=== PATIENT | female | born 1940 | race Caucasian/White ===

== ENCOUNTER 2019-01-03 06:19 | Day surgery (SDC) | payer MEDICARE ==
[~2019-01-03] VITALS: Ht 157.5 cm; Wt 81.8 kg
[~2019-01-03 06:19] MED LIST: ALBU90OI INH; ALEN70; ASCO1ER; GABA300 PO; GLIP10; HYDACE5 PO; HYDGUAL120 PO; IRBE75; METF500 PO; METTREX2.5; MICROZIDE12.5 M1 PO; MULVITB PO; NAPR220 PO; ROFE12.5; ROSI4; RXHYDGUAS PO
--- NOTE | 2019-01-03 06:57 | NUR ---
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
--- NOTE | 2019-01-03 08:42 | NUR ---
01/03/19 0842 Rosaroi Duran WHILE GOING OVER DISCHARGE INSTRUCTIONS, PT. VERBALIZED HER STOMACH FELT KIND OF QUEEZY. PT. VERBALIZES SHE DOES THIS SOMETIMES. PT. STATES " I DO THIS SOMETIMES, I'LL BE FINE."
== END 2019-01-03 08:35 | disposition home or self-care (01) ==
LOC: ORSCSDS 06:19
PROVIDERS: Ophthalmology
PROC: 08RJ3JZ Replacement of Right Lens with Synthetic Substitute, Percutaneous Approach (ICD-10-PCS; principal; 2019-01-03 07:30)
DX: H25.11 Age-related nuclear cataract, right eye (principal); I10 Essential (primary) hypertension; I25.2 Old myocardial infarction; J45.909 Unspecified asthma, uncomplicated; E03.9 Hypothyroidism, unspecified; E11.40 Type 2 diabetes mellitus with diabetic neuropathy, unspecified; Z79.84 Long term (current) use of oral hypoglycemic drugs; Z79.899 Other long term (current) drug therapy
CPT/HCPCS: 82947; J2250; J3010; J7120; V2632

== ENCOUNTER → 2020-02-27 | Outpatient (CLI) | payer MEDICARE | END | disposition home or self-care (01) | LOC: LAB 17:35 | DX: L65.9 Nonscarring hair loss, unspecified (principal) | CPT/HCPCS: 84443 ==

== ENCOUNTER → 2020-12-25 | Outpatient (CLI) | payer MEDICARE | LOC: LAB 14:47 → LAB SHORT 14:47 | DX: D48.5 Neoplasm of uncertain behavior of skin (principal); D18.01 Hemangioma of skin and subcutaneous tissue; Z88.2 Allergy status to sulfonamides | CPT/HCPCS: 88305 ==

== ENCOUNTER → 2022-02-02 | Outpatient (CLI) | payer MEDICARE ==
[2022-02-04 10:52] LABS: Adenovirus F 40/41 Not Detected (NOT DETECT); Astrovirus Not Detected (NOT DETECT); Campylobacter Sp Not Detected (NOT DETECT); Cryptosporidium Not Detected (NOT DETECT); Cyclospora Cayetanensis Not Detected (NOT DETECT); E. Coli O157 Not Detected (NOT DETECT); Entamoeba Histolytica Not Detected (NOT DETECT); Enteroaggregative E. coli-EAEC Not Detected (NOT DETECT); Enteropathogenic E. coli-EPEC Not Detected (NOT DETECT); Enterotoxigenic E. coli-ETEC Not Detected (NOT DETECT); Giardia Lamblia Not Detected (NOT DETECT); Norovirus GI/GII Not Detected (NOT DETECT); Plesiomonas Shigelloides Not Detected (NOT DETECT); Rotavirus A Not Detected (NOT DETECT); Salmonella Sp Not Detected (NOT DETECT); Sapovirus Not Detected (NOT DETECT); Shiga Toxin-prod E. coli-STEC Not Detected (NOT DETECT); Shigella/Enteroin E. coli-EIEC Not Detected (NOT DETECT); Vibrio Cholerae Not Detected (NOT DETECT); Vibrio Sp Not Detected (NOT DETECT); Yersinia Enterocolitica Not Detected (NOT DETECT)
== END | disposition home or self-care (01) ==
LOC: LAB SHORT 15:55
PROVIDERS: Hospitalist
DX: R19.7 Diarrhea, unspecified (principal)
CPT/HCPCS: 87507

== ENCOUNTER → 2023-01-20 | Outpatient (CLI) | payer MEDICARE ==
[2023-01-20 15:49] LABS: BASOPHILS ABSOLUTE AUTO 0.09 K/mm3 (0.00-0.23); BASOPHILS PERCENT AUTO 1 % (0-2); EOSINOPHILS PERCENT AUTO 1 % (0-6); Hematocrit 35.9 % (33.0-51.0); Hemoglobin 11.7 g/dL (11.5-16.0); IMMATURE GRAN ABSOLUTE AUTO 0.03 K/mm3 (0.00-0.10); IMMATURE GRAN PERCENT AUTO 0 % (0-1); LYMPHOCYTES ABSOLUTE AUTO 1.01 K/mm3 (0.84-5.20); LYMPHOCYTES PERCENT AUTO 14 % (21-46); MONOCYTES ABSOLUTE AUTO 0.55 K/mm3 (0.16-1.47); MONOCYTES PERCENT AUTO 8 % (4-13); Mean Corpuscular HGB 32.2 pg (26.0-34.0); Mean Corpuscular HGB Conc 32.6 g/dL (31.5-36.5); Mean Corpuscular Volume 99 fL (80-100); Mean Platelet Volume 11.1 fL (9.1-12.4); NEUTROPHILS ABSOLUTE AUTO 5.58 K/mm3 (1.96-9.15); NEUTROPHILS PERCENT AUTO 76 % (41-73); Platelet Count 246 K/mm3 (150-400); RDW Coefficient Variation 13.1 % (11.7-14.2); RDW Standard Deviation 47.6 fL (35.1-46.3); Red Blood Cell Count 3.63 M/mm3 (3.80-5.20); White Blood Cell Count 7.36 K/mm3 (4.00-11.30)
[2023-01-20 16:11] LABS: Bun/Creatinine Ratio 17.9 (12.0-20.0); Calcium, Blood 9.1 mg/dL (8.5-10.1); Creatinine, Blood 0.61 mg/dL (0.40-1.00); Potassium, Blood 3.9 mmol/L (3.5-5.5)
== END | disposition home or self-care (01) ==
LOC: LAB SHORT 13:34 → LAB 13:34
PROVIDERS: Hospitalist
DX: R19.7 Diarrhea, unspecified (principal)
CPT/HCPCS: 80048; 85025

== ENCOUNTER 2023-03-01 10:54 | Emergency (ER) | payer MEDICARE ==
[~2023-03-01] VITALS: Ht 160 cm; Wt 72.6 kg
[~2023-03-01 10:54] MED LIST changes: +GABA100 PO; -GABA300 PO
[2023-03-01 11:12] VITALS: BP 110/62
[2023-03-01] MEDS ORDERED: Robaxin750 MG PO (13:11)
[2023-03-01] MEDS ORDERED: IBUP400 PO (13:11)
[2023-03-01] MEDS ORDERED: ACET500 PO (13:11)
== END 2023-03-01 14:01 | disposition home or self-care (01) ==
LOC: ER 10:54
DX: S39.012A Strain of muscle, fascia and tendon of lower back, initial encounter (principal); M25.552 Pain in left hip; E11.9 Type 2 diabetes mellitus without complications; I10 Essential (primary) hypertension; W07.XXXA Fall from chair, initial encounter; Z88.2 Allergy status to sulfonamides; Z79.84 Long term (current) use of oral hypoglycemic drugs; Z79.899 Other long term (current) drug therapy
CPT/HCPCS: 73502; 96372; 99283-25; A9270; J1885

== ENCOUNTER 2023-03-02 01:35 | Inpatient (IN) | payer MEDICARE ==
[~2023-03-02] VITALS: Ht 157.5 cm; Wt 77.2 kg
[~2023-03-02 01:35] MED LIST changes: +ACET500 PO; +IBUP400 PO; +Robaxin750 MG PO
[2023-03-02 02:55] LABS: BASOPHILS ABSOLUTE AUTO 0.02 K/mm3 (0.00-0.23); BASOPHILS PERCENT AUTO 0 % (0-2); EOSINOPHILS PERCENT AUTO 0 % (0-6); Hematocrit 38.9 % (33.0-51.0); Hemoglobin 12.4 g/dL (11.5-16.0); IMMATURE GRAN ABSOLUTE AUTO 0.11 K/mm3 (0.00-0.10); IMMATURE GRAN PERCENT AUTO 1 % (0-1); LYMPHOCYTES ABSOLUTE AUTO 0.38 K/mm3 (0.84-5.20); LYMPHOCYTES PERCENT AUTO 2 % (21-46); MONOCYTES ABSOLUTE AUTO 0.58 K/mm3 (0.16-1.47); MONOCYTES PERCENT AUTO 4 % (4-13); Mean Corpuscular HGB 30.6 pg (26.0-34.0); Mean Corpuscular HGB Conc 31.9 g/dL (31.5-36.5); Mean Corpuscular Volume 96 fL (80-100); Mean Platelet Volume 10.2 fL (9.1-12.4); NEUTROPHILS ABSOLUTE AUTO 14.79 K/mm3 (1.96-9.15); NEUTROPHILS PERCENT AUTO 93 % (41-73); Platelet Count 409 K/mm3 (150-400); RDW Standard Deviation 42.7 fL (35.1-46.3); Red Blood Cell Count 4.05 M/mm3 (3.80-5.20); White Blood Cell Count 15.88 K/mm3 (4.00-11.30)
[2023-03-02 03:10] LABS: International Normalized Ratio 1.03; Prothrombin Time Results 10.8 Sec (9.7-11.5)
[2023-03-02 03:16] LABS: Albumin, Blood 2.9 g/dL (3.4-5.0); Albumin/Globulin Ratio 0.7 (0.8-1.8); Bilirubin, Total 0.6 mg/dL (0.1-1.0); Bun/Creatinine Ratio 31.8 (12.0-20.0); Calcium, Blood 9.2 mg/dL (8.5-10.1); Creatinine, Blood 0.66 mg/dL (0.40-1.00); Globulin, Blood 4.4 g/dL (2.2-4.0); Magnesium, Blood 2.3 mg/dL (1.6-2.4); Phosphorus, Blood 3.7 mg/dL (2.5-4.9); Thyroid Stimulating Hormone 1.42 uIU/mL (0.360-4.800); Total Protein, Blood 7.3 g/dL (6.4-8.2)
[2023-03-02 05:10] LABS: Influenza A, PCR NEGATIVE (NEGATIVE); Influenza B, PCR NEGATIVE (NEGATIVE); Resp Syncytial Virus, PCR NEGATIVE (NEGATIVE); SARS-Cov-2 (COVID-19) PCR, MMC NEGATIVE (NEGATIVE)
[2023-03-02 08:13] LABS: Source, Urine Clean Catch
[2023-03-02 08:18] LABS: Bilirubin, Urine Neg (Neg); Blood, Urine 2+ (Neg); Glucose Qualitative, Urine Neg (Neg); Ketones, Urine 4+ (Neg); Leukocyte Esterase, Urine Neg (Neg); Nitrite, Urine Neg (Neg); Protein, Urine 2+ (Neg); Specific Gravity, Urine 1.015 (1.003-1.022); Urobilinogen, Urine NORM (Normal); pH, Urine 6.5 (5.0-8.0)
[2023-03-02 08:56] LABS: Appearance, Urine Hazy (Clear); Bacteria Not Seen /hpf; Color, Urine Yellow (P-Yellow); Red Blood Cells, Urine 0-2 /hpf (0-2); Squamous Epithelial Cells Rare /hpf (Few); White Blood Cells, Urine Not Seen /hpf (0-5)
--- NOTE | 2023-03-02 10:09 | NUR ---
PT ADMITTED TO ROOM 301, STRETCHER TO BED SLIDE TX. PT A/O X4, ORIENTED TO ROOM AND CALL LIGHT AND SAFETY. KNOWS LIMITS. NG HOOKED UP TO LIWS. PT FEELING SEVERE NAUSEA, CALL TO DR KHOURY FOR MORE ANTIEMETIC. PLAN TO GO DOWN FOR US GUIDED THOROCENTESIS. PT CURRENTLY DENIES PAIN.
[2023-03-02 11:50] LABS: Automated BF RBC Count 0.003 M/mm3 (0-0); Automated BF WBC Count 1.082 K/mm3 (0-999)
[2023-03-02 11:53] LABS: Body Fluid WBC Count 1082 /mm3 (0-999); RBC Count, Body Fluid 3000 /mm3 (0-0)
[2023-03-02 12:03] LABS: Glucose, Body Fluid 196 mg/dL
[2023-03-02 12:15] LABS: Lactate Dehydrogenase, Body Fl 153 U/L
[2023-03-02 12:23] LABS: Albumin, Body Fluid 2.5 g/dL
[2023-03-02 12:24] LABS: Protein, Body Fluid 4.7 g/dL
[2023-03-02 12:31] LABS: Total Cell Count, Body Fluid 100
[2023-03-02 12:32] LABS: Appearance, Body Fluid Hazy (Clear); Color, Body Fluid L Yellow (None-Yellow)
[2023-03-02 15:57] VITALS: BP 101/53
--- NOTE | 2023-03-02 16:27 | NUR ---
Upon receiving a referral for spiritual care, I visited the patient. Patient is pleasant and kind even while clearly being in discomfort. She talks about the of her 4 yrs ago, about the wonderful support of her family and her 45 acre ranch out near [place]. 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 She states that she is at peace and "hangin int there" becuase there is no better way to be. I reinforce helpful attitudes, and provide therapeutic listening and a calming presence. Patient responded well and showed signs of an elevated mood. I will continue to remain available ot patient and family.
--- NOTE | 2023-03-02 18:37 | NUR ---
SUMMARY- PT A/O X3-4, GEN WEAKNESS, BEDREST FOR NOW. PT HAD PARACENTESIS TODAY WITH FLUID SENT FOR CYTOLOGY. NG TO LIWS 75 OUT 12 HOUR SHIFT (AFTER INITIAL 2L OUT IN ED WHEN FIRST PLACED). IVF INFUSING LR 75ML/HR. PLACED OXYGEN 2L FOR SATS 90% ROOM AIR, DIM IN BASES. ENC DEEP BREATH. USING PUREFICK RELATED TO INCONT. DAUGHTER IN TO VISIT A FEW HOURS TODAY, WILL RETURN TOMORROW. PT REMAINS NPO, DISTENDED ABD, DENIES PAIN. HAD NAUSEA EARLIER SHIFT, RELEIVED WITH ZOFRAN AND COMPAZINE. WILL REPORT TO NOC RN
--- NOTE | 2023-03-02 18:46 | NUR ---
SUMMARY- PT A/O X4, BEDREST TODAY. HAS GEN WEAKNESS AND DECREASED APPETITE. IVF INFUSING LR @75. VOIDING, URINE DARK CONCENTRATED DOLLY. MIN PO INTAKE. PT LUNGS COARSE, COUGHING, STATES MIN PRODUCTION. RESP UNLABORED STARGED GUIAFENNISEN TODAY. MULT FAMILY IN TODAY,. WILL REPORT TO NIGHTS
[2023-03-02 19:15] VITALS: BP 118/58
[2023-03-03 03:06] VITALS: BP 142/57
[2023-03-03 05:16] LABS: BASOPHILS ABSOLUTE AUTO 0.01 K/mm3 (0.00-0.23); BASOPHILS PERCENT AUTO 0 % (0-2); EOSINOPHILS ABSOLUTE AUTO 0.02 K/mm3 (0.00-0.68); EOSINOPHILS PERCENT AUTO 0 % (0-6); Hematocrit 32.5 % (33.0-51.0); Hemoglobin 10.5 g/dL (11.5-16.0); IMMATURE GRAN ABSOLUTE AUTO 0.06 K/mm3 (0.00-0.10); IMMATURE GRAN PERCENT AUTO 0 % (0-1); LYMPHOCYTES ABSOLUTE AUTO 0.74 K/mm3 (0.84-5.20); LYMPHOCYTES PERCENT AUTO 5 % (21-46); MONOCYTES ABSOLUTE AUTO 1.03 K/mm3 (0.16-1.47); MONOCYTES PERCENT AUTO 7 % (4-13); Mean Corpuscular HGB 31.1 pg (26.0-34.0); Mean Corpuscular HGB Conc 32.3 g/dL (31.5-36.5); Mean Corpuscular Volume 96 fL (80-100); Mean Platelet Volume 10.4 fL (9.1-12.4); NEUTROPHILS ABSOLUTE AUTO 12.89 K/mm3 (1.96-9.15); NEUTROPHILS PERCENT AUTO 87 % (41-73); Platelet Count 326 K/mm3 (150-400); RDW Coefficient Variation 12.3 % (11.7-14.2); Red Blood Cell Count 3.38 M/mm3 (3.80-5.20); White Blood Cell Count 14.75 K/mm3 (4.00-11.30)
[2023-03-03 05:39] LABS: Albumin, Blood 2.1 g/dL (3.4-5.0); Albumin/Globulin Ratio 0.6 (0.8-1.8); Bilirubin, Total 0.5 mg/dL (0.1-1.0); Bun/Creatinine Ratio 46.4 (12.0-20.0); Calcium, Blood 8.7 mg/dL (8.5-10.1); Creatinine, Blood 0.6 mg/dL (0.40-1.00); Globulin, Blood 3.5 g/dL (2.2-4.0); Magnesium, Blood 2.1 mg/dL (1.6-2.4); Potassium, Blood 3.9 mmol/L (3.5-5.5); Total Protein, Blood 5.6 g/dL (6.4-8.2)
--- NOTE | 2023-03-03 05:44 | NUR ---
REPORT RECEIVED VERIFIED PT VERY PLEASENT AND COOPERATIVE EVEN SHE IS VERY UNCOMFORTABLE WITH NGT AND BLOATING. RIGHT NARE NGT INTER SUCTION IS DRAINGING WELL DARK GREEN BILE. PURWIC ALSO FUNTIONAL, ICE CHIPS AND SWAB GIVEN TO PT FOR COMFORT. WILL CONT TO MONITOR, PT ABLE TO MAKE NEEDS KNOWN.
[2023-03-03 07:56] VITALS: BP 126/54
[2023-03-03 15:44] VITALS: BP 131/60
--- NOTE | 2023-03-03 16:36 | NUR ---
Pt resting in bed upon arrival. Pt's daughter Deidre at bedside. Brief review of plan of care. Offered therapeutic listening as Pt reports being , lives alone but daughter lives on same property. At baseline Pt is independent of her ADLs and uses a walker for ambulation. Pt has invested in terminal make up operator insurance and started using it's benefits. Engaged in therapeutic conversation regarding code status wishes, POLST/AD. Educated on life sustaining measures including risks and implications to CPR/Intubation. Pt reports her wishes are DNR. Pt and daughter agreeable to complete POLST. Assisted with completing POLST. Discussed advanced directives and discussed each section to complete. Provided AD with Pt and daughter reporting they will discuss further. Plan: Await cytology results and discuss goals of care based off results. Will obtain copy on POLST upon hospitalist signature for medical records. Palliative Care will remain available
--- NOTE | 2023-03-03 16:51 | NUR ---
SHIFT SUMMARY PATIENT RESTING IN BED. PATIENT ALERT AND INTERACTIVE BUT WEAK. FAMILY AT BEDSIDE PART OF THE DAY REQUESTING TO SPEAK TO PALLIATIVE CARE FOR ADVANCED DIRECTIVE ASSISTANCE. NOTIFIED PALLIATIVE CARE. PATIENT STATES SHE HAS NOT HAD A BM FOR A WHILE. PATIENT UNSURE EXACTLY HOW LONG. PATIENT WAS HAVING DIARRHEA A MONTH AGO THAT THEY FELT WAS RELATED TO THE METFORMIN SHE HAD BEEN TAKING. PATIENT STATES SHE HAS NOT TAKEN THAT FOR ABOUT A MONTH. EDUCATED PATIENT ON THE IMPORTANCE OF HAVING REGULAR BOWEL MOVEMENTS AND OPTIONS ON HOW TO BE SUCCESSFUL AT HOME. NG IN PLACE DRAINING GREEN THICK BILE FLUID. PATIENT DENIES PASSING ANY GAS BUT STATES THAT SHE BELCHES AT TIMES. PATIENT DENIES ANY PAIN OR SHORTNESS OF BREATH. NG CHANGED TO GRAVITY SUCTION PER ORDERS.
[2023-03-03 19:29] VITALS: BP 146/59
[2023-03-03] MEDS ORDERED: METFORMIN HCL500 M3 PO (22:23)
[2023-03-03] MEDS ORDERED: IBUP400 PO (22:23)
[2023-03-04 02:36] VITALS: BP 126/69
--- NOTE | 2023-03-04 05:10 | NUR ---
SHIFT SUMMARY NOC PT A/O X 4. PLEASANT AND COOPERATIVE WITH CARE. PT NPO DUE TO SBO. PT HAS NG TUBE IN R NARE DRAINING TO GRAVITY, WITH BLACK BILE INTO CANISTER. PT HAS NOT HAD C/O OF N/V SO FAR DURING SHIFT.. PT ON O2 3L/NC SPO2 > 92%. PT HAS PUREWICK IN PLACE DRAINING TO SUCTION. PT HAS CONTINUOS INFUSION OF LR @ 75ML/HR. PT IS CBG Q6H AND CNI SO FAR. PT IS CURRENTLY RESTING WITH BED IN LOWEST POSITION, AND CALL LIGHT WITHIN REACH.
[2023-03-04 07:14] VITALS: BP 120/57
[2023-03-04 15:02] VITALS: BP 121/57
--- NOTE | 2023-03-04 19:29 | NUR ---
SHIFT SUMMARY PATIENT ALERT AND INTERACTIVE. PATIENT CONTINUES TO HAVE NG TUBE IN PLACE TO GRAVITY. NO DRAINAGE UNTIL NEAR END OF SHIFT. PATIENT PUT OUT 400CC OF CLEAR LIQUID WITH MUCOUS TISSUE LOOKING DEBRI. PATIENT REPORTING NAUSEA AFTER TALKING WITH DR. DOBBS AND DR BLOUNT RELATED TO FINDINGS OF PLEURAL FLUID. PATIENT GAVE PERMISSION TO CONTACT DAUGHTER TO UPDATE HER. PATIENT NOTED TO HAVE EXCORIATED AREAS ON COCCYX AND BUTTOCKS. SMALL BLISTER NOTED ON L BUTTOCK. RE EDUCATED PATIENT ON THE IMPORTANCE OF REPOSITIONING AND TURNING. BARRIER CREAM APPLIED TO BUTTOCKS. PALLIATIVE CARE NOTIFIED OF PLEURAL FLUID RESULTS.
[2023-03-04 19:41] VITALS: BP 123/60
[2023-03-05 02:03] VITALS: BP 123/55
--- NOTE | 2023-03-05 05:12 | NUR ---
SHIFT SUMMARY NOC PT A/O X 4. PLEASANT AND COOPERATIVE WITH CARE. PT SECOND NIGHT IN A ROW WITH NO N/V. PT HAS ONCOLOGY CONSULT CALLED IN TO ANSWERING SERVICE BY [employer]. PT HAS NG TUBE IN R NARE WITH SCANT DARK BILE AND IS EXPECTED TO BE DISCONTINUED WITH NO N/V SYMPTOMS. ON O2 2L/NC STILL WITH MINIMAL C/O OF SOB. MIDNIGHT CBG 158 WITH 1 UNIT OF COVERAGE PER SLIDING SCALE, BUT PT REFUSED INSULIN DUE TO TAKING PO DIABETIC RX AT HOME. PT EDUCATED ON BLOOD GLUCOSE CONTROL. PUREWICK IN PLACE. PT IS CURRENTLY RESTING WITH BED IN LOWEST POSITION, AND CALL LIGHT WITHIN REACH.
[2023-03-05 07:31] VITALS: BP 118/66
[2023-03-05 15:04] VITALS: BP 114/64
--- NOTE | 2023-03-05 19:24 | NUR ---
SHIFT SUMMARY PATIENT ALERT AND INTERACTIVE. CONTINUES TO BE ON BEDREST. PATIENT CONTINUES TO HAVE HALLUCINATIONS AT TIMES AND IS AWARE THAT THEY ARE HALLUCINATIONS. PATIENT HAS A STRONG FEAR OF FALLING. PATIENT UP TO BEDSIDE COMMODE WITH 2 PERSON ASSIST TO ATTEMPT TO HAVE A BM. PATIENT UNABLE TO HAVE A BM. NG CONTINUES TO BE AT GRAVITY SUCTION. OUTPUT VARIES CONTINUES TO HAVE PIECES OF DARK MUCUS/TISSUE LIKE DEBRI IN CLEAR TO GREEN FLUID. PATIENT EATING MODERATE AMOUNTS OF CLEAR LIQUIDS. MEDICATED FOR MILD NAUSEA. PATIENT CONTINUES TO HAVE SOME EXCORIATION TO BUTTOCKS AND SMALL BLISTER. SLIGHT IMPROVEMENT FROM PREVIOUS DAY. PATIENT NOTIFIED OF CA DIAGNOSIS AND SPOKE WITH DR CASTILLO TODAY.
[2023-03-05 20:33] VITALS: BP 125/57
--- NOTE | 2023-03-05 21:24 | NUR ---
PT RESTING QUIETLY. EYES CLOSED. RESP EVEN. NGT DRAINING TO GRAVITY. NS INFUSING WITHOUT DIFFICULTY TO RFA IV. WILL CONTINUE TO PROVIDE CARE. CALL LT IN REACH.
--- NOTE | 2023-03-06 00:29 | NUR ---
PT PLACED ON BEDPAN FOR BOWEL MOVEMENT. CALL LT IN REACH.
[2023-03-06 04:56] VITALS: BP 115/58
[2023-03-06 05:21] LABS: BASOPHILS ABSOLUTE AUTO 0.03 K/mm3 (0.00-0.23); BASOPHILS PERCENT AUTO 0 % (0-2); EOSINOPHILS ABSOLUTE AUTO 0.14 K/mm3 (0.00-0.68); EOSINOPHILS PERCENT AUTO 1 % (0-6); Hematocrit 37.1 % (33.0-51.0); Hemoglobin 11.8 g/dL (11.5-16.0); IMMATURE GRAN ABSOLUTE AUTO 0.04 K/mm3 (0.00-0.10); IMMATURE GRAN PERCENT AUTO 0 % (0-1); LYMPHOCYTES ABSOLUTE AUTO 0.72 K/mm3 (0.84-5.20); LYMPHOCYTES PERCENT AUTO 7 % (21-46); MONOCYTES ABSOLUTE AUTO 1.32 K/mm3 (0.16-1.47); MONOCYTES PERCENT AUTO 12 % (4-13); Mean Corpuscular HGB 30.9 pg (26.0-34.0); Mean Corpuscular HGB Conc 31.8 g/dL (31.5-36.5); Mean Corpuscular Volume 97 fL (80-100); NEUTROPHILS ABSOLUTE AUTO 8.89 K/mm3 (1.96-9.15); NEUTROPHILS PERCENT AUTO 80 % (41-73); RDW Coefficient Variation 11.9 % (11.7-14.2); RDW Standard Deviation 42.6 fL (35.1-46.3); Red Blood Cell Count 3.82 M/mm3 (3.80-5.20); White Blood Cell Count 11.14 K/mm3 (4.00-11.30)
[2023-03-06 05:30] LABS: Platelet Count 233 K/mm3 (150-400)
[2023-03-06 05:44] LABS: Bun/Creatinine Ratio 30.8 (12.0-20.0); Calcium, Blood 8.1 mg/dL (8.5-10.1); Creatinine, Blood 0.45 mg/dL (0.40-1.00); Potassium, Blood 3.7 mmol/L (3.5-5.5)
[2023-03-06 07:12] VITALS: BP 116/58
--- NOTE | 2023-03-06 07:41 | NUR ---
SHIFT SUMMARY: A/O. STATES NEEDS APPROPRIATELY. 2L VIA NC. DENIES SOB. LR INFUSING AT 75 MLS/HR. NGT TO GRAVITY. DENIES NAUSEA. SCANT OUTPUT. PURWICK IN PLACE, YELLOW URINE. REPOSITIONED PT FOR COMFORT. PT WAS ABLE TO HAVE A LARGE BM DURING NIGHT. CT SCAN FOR MORNING. NO ACUTE CHANGES. WILL CONTINUE TO PROVIDE CARE UNTIL SHIFT REPORT TO ONCOMING NURSE.
--- NOTE | 2023-03-06 09:46 | NUR ---
NG TUBE DR LOUIE REMOVED NG TUBE. PT TOLERATED WELL. CARE ON GOING.
[2023-03-06 16:51] VITALS: BP 107/51
--- NOTE | 2023-03-06 17:38 | NUR ---
NOTE PT AWAKE AND ALERT. NG TUBE REMOVED. MULTIPLE CHOCOLATE BROWN LIQUID STOOL. VSS. DENIED NAUSEA, BLOATIUNG, CRAMPING. PASSING GAS. ABD AFTER EATING SOFT, FLAT AND MILDLY TENDER. PURWICK INPLACE. DOLLY, CLEAR URINE. CHANGED PUREWICK PER PROTOCOL X2 TODAY. CARE ONGLING.
--- NOTE | 2023-03-06 18:24 | NUR ---
Patient recieved news that she has cancer. Met with her daughter and THERESA to review prognosis and potential plan of care. We discussed her comfort and her history. She is most concerned about staying in her home as long as she can. We discussed alloptions of care and trying treatment if she wants and if it is to much she can stop. We discussed holistic decision making and dignity. she is inclined to see if she can tolerate care. Pt had another stephanie movement and is hoping for better tolerance of food.
[2023-03-06 19:26] VITALS: BP 102/50
[2023-03-07 04:43] VITALS: BP 117/62
--- NOTE | 2023-03-07 06:40 | NUR ---
SHIFT SUMMARY NOC PT A/O X 4. PLEASANT AND COOPERATIVE WITH CARE. PT HAS HAD 3 LIQUID/LOOSE STOOLS. PT HAS PUREWICK IN PLACE. PT RECEIVING INFUSION OF LR @ 75 ML/HR. NO C/O N/V. ON O2 2L/NC. PT DISCHARGE PT BEING ABLE TO TOLERATE EATING THEN QUICK FOLLOW UP WITH ONCOLOGY AFTER DISCHARGE. PT IS CURRENTLY RESTING WITH BED IN LOWEST POSITION, AND CALL LIGHT WITHIN REACH.
[2023-03-07 07:44] VITALS: BP 114/54
[2023-03-07 10:21] LABS: Base Excess Venous 7.8 mmol/L; Bicarbonate Venous 31.2 mmol/L (24.0-30.0); PCO2 Venous 37.1 mmHg (38-42)
[2023-03-07 10:22] LABS: pH Blood Venous 7.53 (7.34-7.37)
[2023-03-07 14:16] VITALS: BP 118/56
--- NOTE | 2023-03-07 16:28 | NUR ---
NOTE PT RESTING QUIETLY. NO BM TODAY. ABD SOFT , FLAT. ADVANCED DIET TO FULL LIQUID. SHE DOESN'T LIKE CREAM OF WHEAT. SHE DEVELOPED A STOMACH WHILE WITH PHYSICAL THERAPY. HER STOMACH ACHE WAS CURED WHEN THE THERAPIST LEFT. PT NEEDING ENCOURAGEMENT TO LIFT HER OWN CUP. WANTS STAFF TO FEED HER. ENCOURAGED TO DO FOR HERSELF. PALATIVE CARE AT BEDSIDE. PUREWICK IN PLACE. VOIDING YELLOW URIEN. IVF INFUSING AT 50 ML/HR. CARE ON GOING.
--- NOTE | 2023-03-07 19:00 | NUR ---
TOOK OVER CAR HOSTLER CARE AFTER 0 AND CONTINUED CARE UNTIL REPORT WAS GIVEN AT SHIFT CHANGE.
[2023-03-07 19:50] VITALS: BP 120/52
--- NOTE | 2023-03-08 02:18 | NUR ---
CALLED HOSPITALIST PATIENT STATES THAT NONE OF THE NAUSEA MEDICATIONS I HAVE GIVEN HER THIS SHIFT HAVE WORKED. SHE IS STILL NAUSEOUS WITHOUT RELIEF. NEW MEDICATION ORDER IN EMAR. WE WILL MAKE HER NPO AGAIN FOR NOW UNTIL THIS SUBSIDES.
[2023-03-08 03:07] VITALS: BP 111/52
--- NOTE | 2023-03-08 04:05 | NUR ---
SHIFT SUMMARY ADMITTED FOR SBO. DNR CODE. 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 MEDICATED FOR NAUSEA THROUGHOUT SHIFT, SEE PREVIOUS NOTE. LR INFUSING ORDERED. SHE PLANS TO DC HOME WHEN STABLE, FAMILY LIVES ON PROPERTY. SHE IS CURRENTLY TOO WEAK TO GET OUT OF BED. PUREWICK IN PLACE. SHE IS A&O X4. SHE IS ON ROOM AIR THIS SHIFT. SHE WILL MEET WITH ONCOLOGY OUTPATIENT WHEN SHE IS STABLE FOR DISCHARGE.
[2023-03-08 07:35] VITALS: BP 135/59
[2023-03-08 15:10] VITALS: BP 117/61
--- NOTE | 2023-03-08 16:30 | NUR ---
SHIFT SUMMARY: PT IS AN 82 YEAR OLD FEMALE HERE FOR A NOW RESOLVED SMALL BOWEL OBSTRUCTION AND A NEW DIAGNOSIS OF CARCINOMATOSIS. SHE HAS COMPLAINED OF MILD NAUSEA THROUGHOUT THE SHIFT, BUT HAS NOT REQUIRED ANTIEMETICS OR HAS VOMITED. SHE IS ON A FULL LIQUID DIET AND IS TOLERATING WATER AT THIS TIME. SHE HAS CLINIMIX RUNNING CURRENTLY. SHE IS ALERT AND ORIENTED X4, PLEASANT AND COOPERATIVE. SHE IS A 2 PERSON ASSIST FOR TRANSFERS AND BRIEF CHANGES. SHE COTINUES TO USE THE EXTERNAL CATHETER SYSTEM WITH LITTLE OUTPUT. SHE IS IN BED, WATCHING TV, CALL LIGHT WITHIN REACH, AND NO SIGNS OR SYMPTOMS OF DISTRESS. PLAN OF CARE ONGOING.
[2023-03-08 19:20] VITALS: BP 121/61
[2023-03-09 04:35] VITALS: BP 140/71
[2023-03-09 06:03] LABS: Bun/Creatinine Ratio 37.8 (12.0-20.0); Calcium, Blood 8.2 mg/dL (8.5-10.1); Creatinine, Blood 0.5 mg/dL (0.40-1.00); Potassium, Blood 3.6 mmol/L (3.5-5.5)
--- NOTE | 2023-03-09 06:52 | NUR ---
SUMMARY: PT A/OX4, CALLS APPROPRIATELY TO SPECIFY NEEDS AND IS PLEASANT AND COOPERATIVE W/CARE. SHE REMAINS WEAK, REQUIRING 2PA FOR REPOSITIONING AND OOB. PUREWIC IS IN PLACE FOR INCONTINENCE AND MEPILEX IS C/D/I TO EXCORIATED BUTTOCKS. SM.INTACT BLISTER NOTED TO R.LOWER BACK. IV LEAKING TO L.FA AND WAS NO LONGER PATENT. NEW IV PLACED VIA U/S TO R.FA AND CLINIMIX INFUSES PER EMAR. SHE WAS NAUSEOUS T/O MAJORITY OF NOCTE AND RECEIVED REGLAN, ZOFRAN AND COMPAZINE PRN FOR TEMPORARY RELIEF. PT ONLY TOLERTAED SM.SIPS LIQUIDS AND REPORTED SLIGHTLY BLOATED ABDO BUT DENIED IT LOOKING WORSE THAN PREVIOUS. NO ACUTE CHANGES, VSS/AFEBRILE. WCTM AND REPORT TO DAY RN.
[2023-03-09 07:30] VITALS: BP 126/60
--- NOTE | 2023-03-09 15:46 | NUR ---
Symptom management Audrey displays s/sx of nausea. Her abdomen appears more distended than 4 days ago when this PC RN last seen pt. Audrey is agreeable to antiemetic intervention. Primary RN administered Zofran, IV. Audrey was then able to tolerate Primary RN and this PC RN rolling her side to side for attends and purewick change. Audrey's KPS score last week was 50%. Today's KPS score is an estimated 40%. Encouraged Primadisonry RN to alternate antiemetics (ie, zofran and compazine) for better coverage and prevention on chronic nausea. symptoms
[2023-03-09 16:30] VITALS: BP 126/53
--- NOTE | 2023-03-09 17:05 | NUR ---
SHIFT SUMMARY: PT WASN'T FEELING WELL THIS MORNING WHEN I CAME ON; COMPLAINING OF NAUSEA AND FEELING "CRUMMY" BEEN MEDICATING NEEDED PER EMAR FOR NAUSEA. PATIENT'S ORAL INTAKE TODAY WAS POOR, TAKING SMALL SIPS OF A CLEAR BOOSTER DRINK. HER URINARY OUTPUT IS MINIMAL WELL. DAUGHTER MET WITH PALLATIVE CARE TODAY AND DISCUSSION DECIDED TO PLACED PATIENT ON HOSPICE. SEE PALLATIVE CARE NOTES FOR MORE DETAIL. PATIENT IS PLEASANT, COOPERATIVE, USES CALL LIGHT APPROPRIATELY; IT IS WITHIN REACH, IN BED, AND NO SIGNS OR SYMPTOMS OF DISTRESS. PLAN OF CARE ONGOING.
--- NOTE | 2023-03-09 17:48 | NUR ---
Met with patient and family a few times today. Pt having more distention and nausea. Review with staff medications and treatment. Pt having difficulty with retaining some information. She had lots of questions about treatment and hospice. Slowly explained options very careefully. She was inclined to do treament to live for her daughter. Advised her her daughter does not want her to take that path. Pt feels she does not want treatment and has some fear. we discussed hospice an symptom mangment. She want to be home and comfortable and see her freiends. Called daughter to update her and placed hospice consult. pt ksp scor 40% will contue supportive visits. Concern is worsening symptoms and pt suffering.
[2023-03-09 19:20] VITALS: BP 132/63
[2023-03-10 02:49] VITALS: BP 130/64
--- NOTE | 2023-03-10 06:35 | NUR ---
SUMMARY: PT A/OX4, CALLS APPROPRIATELY TO SPECIFY NEEDS AND IS PLEASANT AND COOPERATIVE W/CARE. 2PA REQ'D WHEN UP BUT SHE'S REMAINED IN BED T/O NOCTE. NAUSEA AND PAIN WERE IMPROVED THIS SHIFT BUT SHE'S BEEN SLEEPING MAJORITY OF NOCTE, AWAKING BRIEFLY TO DENY COMPLAINTS OR NEEDS. PUREWIC IS INTACT W/SMALL AMT ORANGE UO OBSERVED. MEPILEX IS C/D/I TO EXCORIATED BUTTOCKS AND BLISTER TO R.LOW BACK IS INTACT. SHE TOLERATED SM.SIPS LIQ'S AND HAS CLINIMIX INFUSING TO R.FA IV. NO ACUTE CHANGES, VSS/AFEBRILE. WCTM AND REPORT TO DAY RN.
[2023-03-10 07:13] VITALS: BP 137/65
--- NOTE | 2023-03-10 08:20 | NUR ---
Symptom Management Pt resting supine at a 45* angle. Her eyes are closed with w/o s/sx of distress at this time. FLACC scale 0/10. Primary RN denies the need for antiemetic t/o the night. Will remain available to pt/family/staff as needed.
--- NOTE | 2023-03-10 14:27 | NUR ---
Supportive Visit Volunteer is in pt's room visiting and providing theraputic listening and moral support. Pt reports nausea is tolerable and declines intervention at this time. Post visit, volunteer reports, "We had a great visit. She talked about her alexys. She was tearful a couple of times. I told her she didn't have to have a brave face all the time and it is okay to be sad. Audrey wants to be comfortable at home. Her fear is her daughter not understanding what is going on." Pt was very appreciative of volunteer visit.
[2023-03-10 15:24] VITALS: BP 121/57
--- NOTE | 2023-03-10 18:02 | NUR ---
SUMMARY- PT A/O X4, DEPENDANT IN CARE. A/O X4, GEN DECONDITIONING AND ROUTINE TURNS TODAY. INCONT URINE USING PUREWICK. PT TAKING IN SIPS OF CLEARS, TOLERATING WELL. C/O MILD NAUSEA ON/OFF, DECLINED ANTIEMETIC. PT HAS HAD NO BM SINCE 03/06, BT NORMOACTIVE, ABD SOFT, STATES SHE IS PASSING FLATUS. CLINIMIX RUNNING AT 75ML HR INTO R FA IV, ARE IS MILDLY SWOLLEN, BUT BLOOD DRAWS BACK INTO IV SITE. PT STATES SHE HAS NO APPETITE AND THINKS IT'S THAT SHE IS RECEIVING THIS IV NUTRITION. PLAN FOR PT TO BE DC'D ON HOSPICE TOMORROW. WILL REPORT TO MARTIN SILVEIRA
[2023-03-10 19:39] VITALS: BP 120/61
[2023-03-11 03:47] VITALS: BP 112/57
--- NOTE | 2023-03-11 04:02 | NUR ---
SHIFT SUMMARY PATIENT HAD NO ACUTE CHANGES. AXOX 4 AND 2 ASSIST W/FWW TO BSC. PIV REMAINS INTACT. VSS/AFEBRILE. DENIES CHEST PAIN, SOB, AND N/V. PUREWICK IN PLACE. COOPERATIVE WITH CARE. POSSIBLE DISCHARGE ON HOSPICE. CALL LIGHT IN REACH. BED IN LOWEST POSITION. WILL CONTINUE TO MONITOR UNTIL DAY SHIFT NURSE ASSUMES CARE.
[2023-03-11 08:00] VITALS: BP 127/62
[2023-03-11] MEDS ORDERED: LORA.5 PO (09:49)
[2023-03-11] MEDS ORDERED: MORP20L PO (09:50)
--- NOTE | 2023-03-11 10:40 | NUR ---
Nausea symptoms well managed at this time. Pt reports nausea is mild and denies need for intervention. Audrey reports being happy to be going home today. PC twam will remain available as needed.
--- NOTE | 2023-03-11 11:03 | NUR ---
DISCHARGE NOTE: PATIENT'S BELONGINGS GATHERED, PEREZ CATHETER PLACED, AND MEDICAL TRANSPORT ARRIVED TO TAKE PATIENT HOME. DISCHARGE PAPERWORK AND BELONGINGS GIVEN TO MEDICAL TRANSPORT. PATIENT'S DAUGHTER NOTIFIED OF TRANSPORT. NO SIGNS OR SYMPTOMS OF DISTRESS DURING DISCHARGE.
== END 2023-03-11 07:47 | disposition hospice, home (50) | DRG 375 ==
LOC: ER 01:35 → ERHOLD 06:07 → MEDS 06:07 → ER 06:07 → MEDS 09:39
PROVIDERS: Emergency Medicine; Internal Medicine; ADMIT Student in an Organized Health Care Education/Training Program
PROC: 0W9G3ZX Drainage of Peritoneal Cavity, Percutaneous Approach, Diagnostic (ICD-10-PCS; principal; 2023-03-02)
PROC: 0W9G3ZZ Drainage of Peritoneal Cavity, Percutaneous Approach (ICD-10-PCS; 2023-03-02)
PROC: 0DH67UZ Insertion of Feeding Device into Stomach, Via Natural or Artificial Opening (ICD-10-PCS; 2023-03-02)
DX: C48.1 Malignant neoplasm of specified parts of peritoneum (principal); E87.3 Alkalosis; K56.609 Unspecified intestinal obstruction, unspecified as to partial versus complete obstruction; R18.0 Malignant ascites; Z66 Do not resuscitate; E86.0 Dehydration; E11.9 Type 2 diabetes mellitus without complications; K57.30 Diverticulosis of large intestine without perforation or abscess without bleeding; I10 Essential (primary) hypertension; L40.9 Psoriasis, unspecified; Z88.2 Allergy status to sulfonamides; Z79.899 Other long term (current) drug therapy; Z79.84 Long term (current) use of oral hypoglycemic drugs; Z90.49 Acquired absence of other specified parts of digestive tract; Z90.89 Acquired absence of other organs; Z98.890 Other specified postprocedural states; Z87.81 Personal history of (healed) traumatic fracture; D72.829 Elevated white blood cell count, unspecified
CPT/HCPCS: 0241U; 36415; 43752; 49083; 70450; 71045; 71046; 71260; 74177; 80048; 80053; 81001; 82042; 82803; 82945; 82947; 83605; 83615; 83690; 83735; 84100; 84157; 84443; 84484; 85025; 85610; 86304; 88108; 88305; 88341; 88342; 89051; 93005; 93010; 94760; 96361-59; 96374-59; 96375-59; 96376-59; 97110; 97161; 97530; 99285-25; A9270; J0780; J1815; J2405; J2765; J3010; J7030; J7120; Q9967